=== PATIENT | female | born 1990 | race Hispanic/Latino ===

== ENCOUNTER 2018-01-03 00:12 | Emergency (ER) | payer OTHER ==
[2018-01-03] MEDS ORDERED: Tmp-Smz 800 mg-160 mg DS Tab PO STA (00:27)
--- NOTE | 2018-01-03 00:45 | ED PDOC ---
Arrival/HPI - General Chief Complaint: Finger,Hand,&Wrist Time Seen by Provider: 01/03/18 00:23 Historian: Patient - History of Present Illness Narrative History of Present Illness (Text): 01/03/18 00:44 27yr old female presents today with a 2 day history of pain and swelling to the right 2nd finger. pt admits to nail bitting. denies fever/chills. pt states she was able to get pus released from finger. c/o pain to site. no trauma or injury. denies numbness, weakness, tingling in the extremity. no other complaints. Past Medical History - Provider Review Nursing Documentation Reviewed: Yes - Travel History Have you recently traveled outside [place] w/in the past 3 mons?: No - Tetanus Immunization Tetanus Immunization: Unknown - Psychiatric Hx Substance Use: No Family/Social History - Physician Review Nursing Documentation Reviewed: Yes Family/Social History: Unknown Family HX Smoking Status: no Hx Alcohol Use: No Hx Substance Use: No Allergies/Home Meds Allergies/Adverse Reactions: Allergies ibuprofen [From Motrin] Allergy (Verified 01/03/18 00:23) RASH Review of Systems - Review of Systems Constitutional: absent: Fatigue, Fevers Respiratory: absent: SOB, Cough Cardiovascular: absent: Chest Pain, Palpitations Gastrointestinal: absent: Abdominal Pain, Nausea, Vomiting Musculoskeletal: Arthralgias Skin: Other (paronychia) Neurological: absent: Headache, Dizziness Psychiatric: absent: Anxiety, Depression Physical Exam Vital Signs Reviewed: Yes Temperature: Afebrile Blood Pressure: Normal Pulse: Regular Respiratory Rate: Normal Appearance: Positive for: Well-Appearing, Non-Toxic, Comfortable Pain Distress: None Mental Status: Positive for: Alert and Oriented X 3 - Systems Exam Head: Present: Atraumatic Mouth: Present: Moist Mucous Membranes Neck: Present: Normal Range of Motion Respiratory/Chest: Present: Clear to Auscultation Cardiovascular: Present: Regular Rate and Rhythm Upper Extremity: Present: Normal ROM, NORMAL PULSES, Tenderness (right 2nd finger; there is a small area of erythema and swelling noted over the lateral aspect of the cuticle; full rom of finger; sensation and distal pulses intact. cap refill <2. ), Swelling, Erythema, Neurovascularly Intact, Capillary Refill < 2s. No: Deformity Neurological: Present: GCS=15 Skin: Present: Warm, Dry Psychiatric: Present: Alert, Oriented x 3 Medical Decision Making ED Course and Treatment: 01/03/18 00:48 pt is non toxic well appearing; no distress. stable vitals. procedure note; right 2nd finger paronychia using sterile technique a small incision was made just under the lateral cuticle ; small amount of purulent discharge released; packing placed; dressing applied ; pt tolerated procedure well. no complications. pt given tylenol, keflex and bactrim. pt advised to do warm soaks and warm compresses, take mediations as prescribed and return in 2 days for packing removal and wound check. Patient verbalizes understanding of discharge instructions and need for immediate followup. all aspects of this case were discussed the attending of record. impression; paronychia Motrin every 6 hours as needed for pain Bactrim twice daily 7 days kelfex; 4 times daily x 7 days. Keep the wound clean and dry, apply bacitracin twice daily return in 2 days for wound check and packing removal. Return immediately if signs of infection develop: High fevers, increasing pain, redness, swelling, purulent discharge Follow up with the hand specialist within the next 2 days. Followup with primary care physician within the next 2 days Return if any other concerning symptoms develop - Medication Orders Current Medication Orders: Discontinued Medications Acetaminophen (Tylenol 325mg Tab) 975 mg PO STAT STA Stop: 01/03/18 00:28 Cephalexin Monohydrate (Keflex) 500 mg PO STAT STA PRN Reason: Protocol Stop: 01/03/18 00:28 Trimethoprim/Sulfamethoxazole (Bactrim Ds Tab) 1 tab PO STAT STA PRN Reason: Protocol Stop: 01/03/18 00:28 Disposition/Present on Arrival - Present on Arrival Any Indicators Present on Arrival: No History of DVT/PE: No History of Uncontrolled Diabetes: No Urinary Catheter: No History of Decub. Ulcer: No History Surgical Site Infection Following: None - Disposition Have Diagnosis and Disposition been Completed?: Yes Diagnosis: Paronychia Disposition: HOME/ ROUTINE Disposition Time: 00:42 Patient Plan: Discharge Condition: GOOD Discharge Instructions (ExitCare): Paronychia (DC) Additional Instructions: tylenol every 4 hours as needed for pain Bactrim twice daily 7 days kelfex; 4 times daily x 7 days. Keep the wound clean and dry, apply bacitracin twice daily return in 2 days for wound check and packing removal. Return immediately if signs of infection develop: High fevers, increasing pain, redness, swelling, purulent discharge Follow up with the hand specialist within the next 2 days. Followup with primary care physician within the next 2 days Return if any other concerning symptoms develop Prescriptions: Cephalexin [Keflex] 500 mg PO QID #28 capsule Sulfamethoxazole/Trimethoprim [Bactrim DS 800 mg-160 mg] 1 tab PO BID #14 tab Referrals: Dennise Norton MD [Staff Provider] - Follow up with primary Marc Cortes MD [Staff Provider] - Follow up with primary [facility] [place], [place] [Outside] - Follow up with primary Forms: [facility] (Icelandic), WORK NOTE
[2018-01-03 00:53] VITALS: BP 120/92; PULSE 91; RESP 18; TEMP 97.8; O2SAT 100
== END 2018-01-03 01:00 | disposition home or self-care (01) ==
LOC: ED 00:12
DX: L03.011 Cellulitis of right finger (principal)